=== PATIENT | female | born 1940 | race Caucasian/White ===

== ENCOUNTER → 2019-07-12 | Outpatient (CLI) | payer MEDICARE, BC ==
[2014-08-16 18:37] VITALS: BP 164/79
--- NOTE | 2019-07-12 13:59 | RAD ---
EXAM: Cervical spine, 4 views. HISTORY: Pain. COMPARISON: None. FINDINGS: 4 views of cervical spine are obtained. There is mild anterolisthesis of C3 on C4 and C4 on C5 and minimal retrolisthesis of C5 on C6. There is degenerative endplate remodeling with disc space narrowing and osteophytosis primarily at C5-C6, and to a lesser extent, C6-C7. There is multilevel facet arthropathy. There is a central catheter partially included on the [id number]. IMPRESSION: 1. Multilevel degenerative change involving the cervical spine, primarily at C5-C6 and C6-C7. 2. No acute osseous finding. Electronically signed by: Simran Green MD (07/12/2019 1:56 PM) [place] [id number]
== END | disposition home or self-care (01) ==
LOC: PMG 12:13
PROVIDERS: ATTEND Physician Assistant
DX: M47.812 Spondylosis without myelopathy or radiculopathy, cervical region (principal); M48.02 Spinal stenosis, cervical region; M12.88 Other specific arthropathies, not elsewhere classified, other specified site; M25.78 Osteophyte, vertebrae
CPT/HCPCS: 72040

== ENCOUNTER 2021-09-28 15:09 | Emergency (ER) | payer MEDICARE ==
[~2021-09-28] VITALS: Ht 162.6 cm; Wt 90.0 kg
--- NOTE | 2021-09-28 15:51 | PHYS DOC ---
Past History Past Medical History: No Pertinent History (TOBY SIERRA APRN) Past Surgical History: No Surgical History (TOBY SIERRA APRN) Alcohol Use: None Drug Use: None (TOBY SIERRA APRN) General Adult EDM: Chief Complaint: MECHANICAL FALL HPI: HPI: Patient is a 81-year-old female who presents after a fall last week. Patient states that she was leaving [place] when she fell walking out the doorway. Patient states she fell straight backwards onto her back. Patient states that she hit her head and did have a loss of consciousness. Patient reports that she is on blood thinners. Patient states she is unable to ambulate without assistance at home. Patient's been taking Tylenol but denies taking anything today for discomfort. Patient also reporting pain to her left, upper arm. Patient still has full range of motion sensations intact. Denies hip pain. Denies chest pain, dizziness, shortness of breath. Reports being on blood thinners. (TOBY SIERRA APRN) Review of Systems: Review of Systems: Constitutional: Denies fever or chills Eyes: Denies change in visual acuity HENT: Denies nasal congestion or sore throat Respiratory: Denies cough or shortness of breath Cardiovascular: Denies chest pain or edema GI: Denies abdominal pain, nausea, vomiting, bloody stools or diarrhea : Denies dysuria Musculoskeletal: Reports lower back pain, left upper arm pain Integument: Denies rash Neurologic: Denies headache, focal weakness or sensory changes Endocrine: Denies polyuria or polydipsia Lymphatic: Denies swollen glands Psychiatric: Denies depression or anxiety (TOBY SIERRA APRN) Allergies: Allergies: Allergies Coded Allergies Type Severity Reaction Last Updated Verified iodine Allergy Intermediate Nausea and Vomiting 08/16/14 Yes morphine Allergy Intermediate Nausea 08/16/14 Yes (TOBY SIERRA APRN) Physical Exam: PE: Constitutional: Well developed, well nourished, no acute distress, non-toxic appearance. HENT: bilateral external ears normal, oropharynx moist, no oral exudates, nose normal. Eyes: PERRLA, conjunctiva normal, no discharge. Neck: Normal range of motion, no tenderness, no deformities or signs of trauma Cardiovascular:Heart rate regular rhythm, no murmur Lungs & Thorax: Bilateral breath sounds clear to auscultation Abdomen: Bowel sounds normal, soft, no tenderness, no masses Skin: Warm, dry, no erythema, no rash Back: Lumbar tenderness, no signs of trauma or bruising. No CVA tenderness. Extremities: Left upper arm tenderness, ROM intact, no edema Neurologic: Alert and oriented X 3, normal motor function, normal sensory function, no focal deficits noted. Psychologic: Affect normal, judgement normal, mood normal. [] (TOBY SIERRA APRN) EKG: EKG: [] (TOBY SIERRA APRN) Radiology/Procedures: Radiology/Procedures: []Exam: CT of abdomen and pelvis without contrast. CT lumbar spine INDICATION: Fall TECHNIQUE: Sequential axial images through the abdomen and pelvis obtained without IV contrast. Sagittal and coronal reformatted images were reconstructed from the axial data and reviewed. Cone-down reconstructed images of the lumbar spine were also reviewed. Exposure: One or more of the following in the visualized dose reduction techniques were utilized for this examination: 1. Automated exposure control 2. Adjustment of the MA and/or KV according to patient size 3. Use of iterative of reconstructive technique Comparisons: None FINDINGS: Heart size is normal. No pericardial effusion. Strandy opacities the dependent portion lungs likely representing atelectasis. No pleural effusion. Evaluation of solid organs limited secondary to noncontrast technique. Liver, spleen, pancreas, gallbladder and adrenals are unremarkable. No perinephric inflammation or hydronephrosis. No renal or ureteral calculi are identified. Bladder is partially distended and not well evaluated. Uterus not enlarged. No abnormal adnexal mass. Diverticulosis noted at the sigmoid colon. Postoperative changes at the mid colon. There is a midline ventral hernia containing a short segment of colon. Small bowel is unremarkable. No free intra-abdominal air or fluid. No obstruction. Postoperative changes at the stomach. Abdominal aorta has normal course and caliber. No enlarged intra-abdominal lymph nodes are identified. No suspicious osseous lesions or acute fractures. Lumbar spine: Grade 1 anterolisthesis of L4 on L5. Vertebral body heights are well-maintained. Fracture to the lumbar spine is not identified. Multilevel spondylotic changes lumbar spine with degenerative disc disease greatest at L4-L5. Bilateral facet arthropathy is also noted lumbar spine. IMPRESSION: 1. No acute traumatic sequela identified within the abdomen or pelvis. 2. Negative CT of lumbar spine for acute traumatic injury. Electronically signed by: Russell Lopez MD (09/28/2021 4:25 PM) [id number] EXAM: Left humerus, 2 views. HISTORY: Fall. COMPARISON: None. FINDINGS: 2 views of the left humerus are obtained. There is no fracture, dislocation or subluxation. IMPRESSION: No acute osseous finding. Electronically signed by: Simran Green MD (09/28/2021 4:03 PM) [id number] (TOBY SIERRA APRN) Heart Score: C/O Chest Pain: No Risk Factors: Risk Factors: DM, Current or recent (<one month) smoker, HTN, HLP, family history of CAD, obesity. Risk Scores: Score 0 - 3: 2.5% MACE over next 6 weeks - Discharge Home Score 4 - 6: 20.3% MACE over next 6 weeks - Admit for Clinical Observation Score 7 - 10: 72.7% MACE over next 6 weeks - Early Invasive Strategies (TOBY SIERRA APRN) Course & Med Decision Making: Course & Med Decision Making Pertinent Labs and Imaging studies reviewed. (See chart for details) [] 81-year-old female presents after a fall last week. Patient reports lumbar pain along with pain to left humerus. Patient does report loss of consciousness and is on blood thinners. On physical exam, neck and back have no signs of def ormities or trauma. No tenderness is noted on palpitation of the spinous processes. Patient denies saddle anesthesia. No urinary retention or loss of bowel reported. Work-up in the emergency room consisted of CT head cervical spine, lumbar, abdomen and pelvis. X-ray of the left humerus ordered to rule out fracture. Patient's pain was treated in the emergency room. Denies taking anything for pain prior to arrival. CT head cervical spine, lumbar, abdomen and pelvis and left humerus xray unremarkable. Discussed all results with patient. Advised patient to take Tylenol and ibuprofen for discomfort. Ice to the tender areas. Patient most likely is sore from the fall. Patient should follow-up with her PCP tomorrow for further management. (TOBY SIERRA APRN) Course & Med Decision Making I was the Attending physician on the above date of service of this patient. This patient was evaluated, examined, treated, and dispositioned from the emergency department by the mid-level practitioner. Although I was working at the time , no assistance was requested. Electronically signed, Natividad Honeycutt DO (NATIVIDAD HONEYCUTT DO) Ariel Disclaimer: Ariel Disclaimer: This electronic medical record was generated, in whole or in part, using a voice recognition dictation system. (TOBY SIERRA APRN) Departure Departure: Impression: Primary Impression: Fall Qualified Codes: W19.XXXA - Unspecified fall, initial encounter Additional Impression: Back pain Qualified Codes: M54.50 - Low back pain, unspecified Disposition: HOME / SELF CARE / HOMELESS Condition: STABLE Referrals: JAMIR SHELL (PCP) Patient Instructions: Back Pain, Adult, [id number] Additional Instructions: You were seen in the emergency room after a fall 1 week ago. We did a CT of your head and neck, your back and abdomen. We also did an x-ray of your left upper arm. All of your x-rays and CTs were unremarkable. You were most likely still sore from the fall. You can take ibuprofen and Tylenol at home for discomfort. I think it would be appropriate for you to call your PCP make a follow-up appointment for tomorrow for further management. Please return to the emergency room if your symptoms worsen or have any new concerns. EMERGENCY DEPARTMENT GENERAL DISCHARGE INSTRUCTIONS Thank you for coming to [facility] (ED) today and trusting us with you care. We trust that you had a positivie experience in our Emergency Department. If you wish to speak to the department management, you may call the director at [phone]. YOUR FOLLOW UP INSTRUCTIONS ARE FOLLOWS: 1. Do you have a private Doctor? If you do not have a private doctor, please ask for a resource list of physicians or clinics that may be able to assist you with follow up care. 2. The Emergency Physician has interpreted your x-rays. The X-Ray specialist will also review them. If there is a change in the findings, you will be notified in 48 hours when at all possible. 3. A lab test or culture has been done, your results will be reviewed and you will be notified if you need a change in treatment. ADDITIONAL INSTRUCTIONS AND INFORMATION: 1. Your care today has been supervised by a physician who is specially trained in emergency care. Many problems require more than one evaluation for a complete diagnosis and treatment. We recommend that you schedule your follow up appointment as recommended to ensure complete treatment of you illness or injury. If you are unable to obtain follow up care and continue to have a problem, or if your condition worsens, we recommend that you return to the ED. 2. We are not able to safely determine your condition over the phone nor are we able to give sound medical advice over the phone. For these safety reasons, if you call for medical advice we will ask you to come to the ED for further evaluation. 3. If you have any questions regarding these discharge instructions please call the ED at [phone]. SAFETY INFORMATION: In the interest of safety, wellness, and injury prevention; we encourage you to wear your sealbelt, if you smoke; quite smoking, and we encourage family to use a protective helmet for bicycling and other sporting events that present an increased risk for head injury. IF YOUR SYMPTOMS WORSEN OR NEW SYMPTOMS DEVELOP, OR YOU HAVE CONCERNS ABOUT YOUR CONDITION; OR IF YOUR CONDITION WORSENS WHILE YOU ARE WAITING FOR YOUR FOLLOW UP APPOINTMENT; EITHER CONTACT YOUR PRIMARY CARE DOCTOR, THE PHYSICIAN WHOSE NAME AND NUMBER YOU WERE GIVEN, OR RETURN TO THE ED IMMEDIATELY. TOBY SIERRA APRN Sep 28, 2021 15:51 NATIVIDAD HONEYCUTT DO Sep 29, 2021 08:22
--- NOTE | 2021-09-28 16:06 | RAD ---
EXAM: Left humerus, 2 views. HISTORY: Fall. COMPARISON: None. FINDINGS: 2 views of the left humerus are obtained. There is no fracture, dislocation or subluxation. IMPRESSION: No acute osseous finding. Electronically signed by: Simran Green MD (09/28/2021 4:03 PM) [id number]
--- NOTE | 2021-09-28 16:27 | RAD ---
Exam: CT of abdomen and pelvis without contrast. CT lumbar spine INDICATION: Fall TECHNIQUE: Sequential axial images through the abdomen and pelvis obtained without IV contrast. Sagit jarad and coronal reformatted images were reconstructed from the axial data and reviewed. Cone-down rec onstructed images of the lumbar spine were also reviewed. Exposure: One or more of the following in the visualized dose reduction techniques were utilized for this examination: 1. Automated exposure control 2. Adjustment of the MA and/or KV according to patient size 3. Use of iterative of reconstructive technique Comparisons: None FINDINGS: Heart size is normal. No pericardial effusion. Strandy opacities the dependent portion lungs likely r epresenting atelectasis. No pleural effusion. Evaluation of solid organs limited secondary to noncontrast technique. Liver, spleen, pancreas, gallbladder and adrenals are unremarkable. No perinephric inflammation or hydronephrosis. No renal or ureteral calculi are identified. Bladder is partially distended and not well evaluated. Uterus not enlarged. No abnormal adnexal mass. Diverticulosis noted at the sigmoid colon. Postoperative changes at the mid colon. There is a midline ventral hernia containing a short segment of colon. Small bowel is unremarkable. No free intra-abdom inal air or fluid. No obstruction. Postoperative changes at the stomach. Abdominal aorta has normal course and caliber. No enlarged intra-abdominal lymph nodes are identified. No suspicious osseous lesions or acute fractures. Lumbar spine: Grade 1 anterolisthesis of L4 on L5. Vertebral body heights are well-maintained. Fracture to the lumbar spine is not identified. Multilevel spondylotic changes lumbar spine with degenerative disc disease greatest at L4-L5. Bilater al facet arthropathy is also noted lumbar spine. IMPRESSION: 1. No acute traumatic sequela identified within the abdomen or pelvis. 2. Negative CT of lumbar spine for acute traumatic injury. Electronically signed by: Russell Lopez MD (09/28/2021 4:25 PM) [facility]
[2021-09-28] MEDS: HYDROcodone/APAP 5/325MG 1 TAB TABLET PO ONE (16:29)
--- NOTE | 2021-09-28 16:36 | RAD ---
CT scan of the head without contrast 09/28/2021 Clinical History: Fall with head injury. Technique: Unenhanced, contiguous, 5 mm axial sections were obtained through the head. One or more of the following individualized dose reduction techniques were utilized for this study: 1. Automated exposure control. 2. Adjustment of the mA and/or kV according to patient size. 3. Use of iterative reconstruction technique. Findings: Comparison study is dated 03/06/2008. There is generalized parenchymal atrophy. Areas of decreased attenuation are seen within the perivent ricular and subcortical white matter of both cerebral hemispheres consistent with areas of small vess el ischemic disease. Areas of encephalomalacia are seen involving both occipital lobes, right greater than left No acute parenchymal abnormality is seen. No extra-axial fluid collection is noted. No sku ll fracture is seen. Severe mucosal thickening is involving the right maxillary sinus. Mild to modera te mucosal thickening is seen involving the ethmoid air cells bilaterally. Moderate mucosal thickenin g is seen within the sphenoid sinus. Impression: No acute intracranial abnormality is seen. CT scan of the cervical spine without contrast 09/28/2021 Clinical history: Fall with neck injury. Technique: Unenhanced, contiguous, 0.625 mm axial sections were obtained through the cervical spine. 2.5 mm reconstructed axial and 2 mm coronal and sagittal reconstructed images were obtained. One or more of the following individualized dose reduction techniques were utilized for this study: 1. Automated exposure control. 2. Adjustment of the mA and/or kV according to patient size. 3. Use of iterative reconstruction technique. Findings: Sagittal and coronal reconstructed images demonstrate straightening of the normal cervical lordosis. Mild anterolisthesis of C3 in relation to C4 and C4 relation to C5 is noted. Degenerative c hanges consisting of disc space narrowing, vertebral endplate sclerosis and mild to moderate anterior vertebral body osteophyte formation are seen involving the C5-6 and C6-7 disc spaces predominantly. Atherosclerotic calcification is seen in region carotid bifurcations. No fracture or subluxation cervical vertebrae is seen. Degenerative changes are seen involving the un covertebral and facet joints throughout the cervical disc spaces. Impression: No fracture or subluxation of the cervical vertebra is identified. Electronically signed by: Cirilo Obregon MD (09/28/2021 4:33 PM) [id number]
[2021-09-28 17:18] VITALS: BP 162/67
== END 2021-09-28 17:59 | disposition home or self-care (01) ==
LOC: ER 15:09
DX: M54.59 Other low back pain (principal); M79.602 Pain in left arm; Z88.8 Allergy status to other drugs, medicaments and biological substances; Z88.5 Allergy status to narcotic agent; W18.39XA Other fall on same level, initial encounter; Y93.89 Activity, other specified; Y92.89 Other specified places as the place of occurrence of the external cause; Y99.8 Other external cause status
CPT/HCPCS: 70450; 72125; 72131; 73060; 74176; 99285

== ENCOUNTER 2021-10-11 10:32 | Emergency (ER) | payer MEDICARE ==
[~2021-10-11] VITALS: Ht 162.6 cm; Wt 78.5 kg
[2021-10-11] MEDS ORDERED: ONDANSETRON PF 4 MG/2 ML VIAL. IVP ONE ×2 (10:45→15:30)
[2021-10-11] MEDS ORDERED: IV RINGERS SOLUTION,LACTATED 1,000 ML IV ONE (10:45)
--- NOTE | 2021-10-11 12:16 | PHYS DOC ---
Past History Past Medical History: Cancer, DVT Past Surgical History: Tonsillectomy Additional Past Surgical Histo: PORT Alcohol Use: None Drug Use: None General Adult EDM: Chief Complaint: NAUSEA/VOMITING/DIARRHEA HPI: HPI: Patient is a 81 year old female who presents with nausea and vomiting. Patient reports anorexia for the past several weeks. She has not vomited today, but reports multiple episodes of emesis yesterday. Patient denies abdominal pain, bloody emesis, bloody stool, constipation or diarrhea. Review of Systems: Review of Systems: Constitutional: Denies fever, chills or generalized weakness Eyes: Denies change in visual acuity, visual field deficits or discharge HENT: Denies ear pain, nasal congestion or sore throat Respiratory: Denies cough or shortness of breath Cardiovascular: Denies chest pain, palpitations or edema GI: See HPI : Denies dysuria or hematuria Musculoskeletal: Denies back pain or joint pain Integument: Denies rash or other skin lesion Neurologic: Denies headache, focal weakness or sensory changes Current Medications: Current Meds: Current Medications Medications (Trade) Dose Ordered Sig/Olga Start Time Stop Time Status Last Admin Dose Admin Lactated Ringer's 1,000 ml @ 1,000 mls/hr 1X ONCE 10/11/21 10:45 10/11/21 11:45 DC 10/11/21 11:20 1,000 MLS/HR Ondansetron HCl (Zofran) 4 mg 1X ONCE 10/11/21 10:45 10/11/21 10:56 DC 10/11/21 11:26 4 MG Allergies: Allergies: Allergies Coded Allergies Type Severity Reaction Last Updated Verified iodine Allergy Intermediate Nausea and Vomiting 08/16/14 Yes morphine Allergy Intermediate Nausea 08/16/14 Yes Physical Exam: PE: Constitutional: Well developed, well nourished, no acute distress, non-toxic appearance. HENT: Normocephalic, atraumatic, bilateral external ears normal, nose normal. Eyes: EOMI, conjunctiva normal, no discharge. Neck: Normal range of motion, no stridor. Abdomen: Bowel sounds normal, soft, no tenderness, no masses, no pulsatile masses. Skin: Warm, dry, no erythema, no rash. Extremities: Left sided unilateral swelling, no tenderness, no cyanosis, no clubbing, ROM intact. Neurologic: Alert and oriented x4, no focal deficits noted. Current Patient Data: Labs: Laboratory Tests Test 10/11/21 12:50 White Blood Count 14.3 x10^3/uL (4.0-11.0) Red Blood Count 3.94 x10^6/uL (3.50-5.40) Hemoglobin 11.8 g/dL (12.0-15.5) Hematocrit 36.0 % (36.0-47.0) Mean Corpuscular Volume 91 fL (79-100) Mean Corpuscular Hemoglobin 30 pg (25-35) Mean Corpuscular Hemoglobin Concent 33 g/dL (31-37) Red Cell Distribution Width 13.8 % (11.5-14.5) Platelet Count 294 x10^3/uL (140-400) Neutrophils (%) (Auto) 82 % (31-73) Lymphocytes (%) (Auto) 8 % (24-48) Monocytes (%) (Auto) 9 % (0-9) Eosinophils (%) (Auto) 1 % (0-3) Basophils (%) (Auto) 1 % (0-3) Neutrophils # (Auto) 11.7 x10^3uL (1.8-7.7) Lymphocytes # (Auto) 1.2 x10^3/uL (1.0-4.8) Monocytes # (Auto) 1.3 x10^3/uL (0.0-1.1) Eosinophils # (Auto) 0.1 x10^3/uL (0.0-0.7) Basophils # (Auto) 0.1 x10^3/uL (0.0-0.2) Sodium Level 137 mmol/L (136-145) Potassium Level 4.0 mmol/L (3.5-5.1) Chloride Level 102 mmol/L (98-107) Carbon Dioxide Level 24 mmol/L (21-32) Anion Gap 11 (6-14) Blood Urea Nitrogen 14 mg/dL (7-20) Creatinine 1.0 mg/dL (0.6-1.0) Estimated GFR (Cockcroft-Gault) 53.5 BUN/Creatinine Ratio 14 (6-20) Glucose Level 104 mg/dL (70-99) Calcium Level 9.0 mg/dL (8.5-10.1) Magnesium Level 2.0 mg/dL (1.8-2.4) Total Bilirubin 0.8 mg/dL (0.2-1.0) Aspartate Amino Transf (AST/SGOT) 21 U/L (15-37) Alanine Aminotransferase (ALT/SGPT) 15 U/L (14-59) Alkaline Phosphatase 102 U/L (46-116) Total Protein 7.7 g/dL (6.4-8.2) Albumin 2.8 g/dL (3.4-5.0) Albumin/Globulin Ratio 0.6 (1.0-1.7) Lipase 23 U/L (73-393) Vital Signs: Vital Signs Date Time Temp Pulse Resp B/P (MAP) Pulse Ox O2 Delivery O2 Flow Rate FiO2 10/11/21 11:22 87 20 146/59 (88) 99 Room Air 10/11/21 10:35 98.2 Radiology/Procedures: Radiology/Procedures: PROCEDURE: VENOUS LOWER EXTREMITY LEFT Examination: Left Lower Extremity Venous Doppler Ultrasound History: Left lower extremity swelling Comparison: None Procedure: Orellana scale, color flow 2D and spectal waveform analysis images are obtained with and without compression in the area of the common femoral vein, superficial femoral vein - femoral vein junction, main femoral vein (superficial femoral vein) and popliteal vein. Veins of the proximal calf are also imaged. Findings: There is echogenicity identified in the left common femoral vein, superficial femoral vein, popliteal vein, posterior tibialis vein likely occlusive thrombus throughout the left lower extremity. IMPRESSION: Occlusive deep venous thrombosis throughout the left lower extremity venous system. FOR INTERNAL CODING PURPOSES Critical result: Findings discussed with VIOLET MORENO at 10/11/2021 12:44 PM. RESULT CODE: (C) Electronically signed by: Collin Bradford MD (10/11/2021 12:47 PM) [id number] Heart Score: C/O Chest Pain: No Course & Med Decision Making: Course & Med Decision Making Pertinent Labs and Imaging studies reviewed. (See chart for details) Patient is a 81-year-old female who presents to the emergency department shortly after her also presented. Her complaints are nausea and vomiting for the past week or so. She reports associated history of anorexia for few weeks. On physical exam, left lower extremity swelling was noted. Patient states that this is "normal" for her. Work-up today will include labs, urinalysis, left lower extremity ultrasound. Lower extremity ultrasound reveals an occlusive DVT extending proximally from the femoral vein all the way down to the calf. As the patient is currently on Xarelto, DVT is not expected. She will be transferred to [facility], at request of patient and family. Transfer center paged. Patient was accepted at [facility] for transfer for higher level of care. Accepting physician is Dr. Rivka Coronado. Patient is hemodynamically stable at time of sulema George Disclaimer: Ariel Disclaimer: This electronic medical record was generated, in whole or in part, using a voice recognition dictation system. Departure Departure: Impression: Primary Impression: DVT, lower extremity, proximal Qualified Codes: I82.4Y2 - Acute embolism and thrombosis of unspecified deep veins of left proximal lower extremity Additional Impressions: Hx of group home use of blood thinners Hx of malignant neoplasm of colon Disposition: 02 [facility]ORT TERM [facility]OSP[facility] Condition: GUARDED Referrals: JAMIR SHELL (PCP) KADEN CHUA Oct 11, 2021 12:16
--- NOTE | 2021-10-11 12:49 | RAD ---
Examination: Left Lower Extremity Venous Doppler Ultrasound History: Left lower extremity swelling Comparison: None Procedure: Orellana scale, color flow 2D and spectal waveform analysis images are obtained with and witho ut compression in the area of the common femoral vein, superficial femoral vein - femoral vein juncti on, main femoral vein (superficial femoral vein) and popliteal vein. Veins of the proximal calf are a lso imaged. Findings: There is echogenicity identified in the left common femoral vein, superficial femoral vein, popliteal vein, posterior tibialis vein likely occlusive thrombus throughout the left lower extremity. IMPRESSION: Occlusive deep venous thrombosis throughout the left lower extremity venous system. FOR INTERNAL CODING PURPOSES Critical result: Findings discussed with VIOLET MORENO at 10/11/2021 12:44 PM. RESULT CODE: (C) Electronically signed by: Collin Bradford MD (10/11/2021 12:47 PM) [id number]
[2021-10-11 13:06] LABS: BASO # 0.1 x10^3/uL (0.0-0.2); BASO % 1 % (0-3); EOS # 0.1 x10^3/uL (0.0-0.7); EOS % 1 % (0-3); HEMOGLOBIN 11.8 g/dL (12.0-15.5); LYMPH # 1.2 x10^3/uL (1.0-4.8); LYMPH % 8 % (24-48); MEAN CORPUSCULAR HEMOGLOBIN 30 pg (25-35); MEAN CORPUSCULAR HGB CONC 33 g/dL (31-37); MEAN CORPUSCULAR VOLUME 91 fL (79-100); MONO # 1.3 x10^3/uL (0.0-1.1); MONO % 9 % (0-9); NEUT # 11.7 x10^3uL (1.8-7.7); NEUT % 82 % (31-73); PLATELET COUNT 294 x10^3/uL (140-400); RED BLOOD COUNT 3.94 x10^6/uL (3.50-5.40); RED CELL DISTRIBUTION WIDTH 13.8 % (11.5-14.5); WHITE BLOOD COUNT 14.3 x10^3/uL (4.0-11.0)
[2021-10-11 13:15] LABS: GFR 53.5
[2021-10-11 13:20] LABS: ALBUMIN 2.8 g/dL (3.4-5.0); ALBUMIN/GLOBULIN RATIO 0.6 (1.0-1.7); TOTAL BILIRUBIN 0.8 mg/dL (0.2-1.0); TOTAL PROTEIN 7.7 g/dL (6.4-8.2)
[2021-10-11 16:03] VITALS: BP 147/69
== END 2021-10-11 16:37 | disposition short-term general hospital (02) ==
LOC: ER 10:49
DX: I82.4Y2 Acute embolism and thrombosis of unspecified deep veins of left proximal lower extremity (principal); R11.2 Nausea with vomiting, unspecified; R63.0 Anorexia; Z86.718 Personal history of other venous thrombosis and embolism; Z85.038 Personal history of other malignant neoplasm of large intestine; Z79.01 Long term (current) use of anticoagulants; Z88.5 Allergy status to narcotic agent; Z88.8 Allergy status to other drugs, medicaments and biological substances
CPT/HCPCS: 36415; 80053; 83690; 83735; 85025; 93971; 96361; 96374; 96376; 99285; J2405; J7120